=== PATIENT | male | born 1970 | race Caucasian/White ===

== ENCOUNTER 2020-07-28 14:36 | Emergency (ER) | payer OTHER, SELFPAY ==
[2020-07-28 14:51] VITALS: BP 161/83; PULSE 70; RESP 17; TEMP 37.1; O2SAT 98
[2020-07-28] MEDS: KETOROLAC 60 MG/2 ML VIAL 30 MG IM (17:08)
[2020-07-28] MEDS: CYCLOBENZAPRINE 10 MG TABLET PO (17:08)
[2020-07-28] MEDS: HYDROCODONE/ACET 5/325 TABLET 1 TAB PO (17:08)
[2020-07-28] MEDS: LIDOCAINE PATCH 1 EACH ADH..PATCH TOP (17:09)
--- NOTE | 2020-07-28 17:17 | ED.BACK ---
HPI - Back Pain/Injury <LELA Ramirez-BC - Last Filed: 07/28/20 17:43> General Chief Complaint: Back Pain/Injury Stated Complaint: bad back Time Seen by Provider: 07/28/20 16:52 Source: patient and family Mode of arrival: Ambulatory Limitations: no limitations History of Present Illness HPI Narrative: The patient is a 50-year-old male former smoker denies pertinent medical history presents with a chief complaint of right-sided lower back pain that started earlier today at approximately noon. He bent over to tie his shoes and felt sudden severe pain. He denies any numbness or tingling that is new. He denies any incontinence of bowel incontinence of bladder. He took 250 mg of naproxen at noon today. He denies any numbness of his groin. Denies any previous back injuries. States he feels like he is ?seized up. Related Data Previous Rx's Medication Instructions Recorded cyclobenzaprine 10 mg PO TID PRN #14 tab 07/28/20 hydrocodone-acetaminophen [[place]] 1 tab PO Q4-6H PRN #10 tab 07/28/20 ketorolac 10 mg PO TID PRN #15 tab 07/28/20 lidocaine 1 patch TOPICAL DAILY PRN #15 ea 07/28/20 Allergies Allergy/AdvReac Type Severity Reaction Status Date / Time No Known Drug Allergies Allergy Unverified 05/09/20 11:28 Review of Systems <LELA Ramirez-BC - Last Filed: 07/28/20 17:43> Review of Systems Narrative: GENERAL: Denies chills, fatigue, malaise, fever, sweats. HEENT: Denies sinus pain, ear pain, sore throat, difficulty swallowing, dizziness. RESPIRATORY: Denies dyspnea, cough, wheezing, hemoptysis, sputum. CARDIOVASCULAR: Denies chest pain, palpitations, orthopnea, edema, GASTROINTESTINAL: Denies nausea, vomiting, abdominal pain, diarrhea, constipation, melena. : Denies dysuria, frequency, incontinence, hematuria, urinary retention. MUSCULOSKELETAL: See HPI SKIN: Denies rash, skin lesions, or other NEUROLOGIC: Denies weakness, headache, numbness, change in speech, confusion, seizures, incoordination. PSYCHIATRIC: No concerning psychosocial issues. 12 point review of systems is negative except for those stated above Patient History <IJEOMA Ramirez - Last Filed: 07/28/20 17:43> Medical History (Updated 07/28/20 @ 17:20 by IJEOMA Ramirez) Eustachian tube dysfunction Social History Smoking Status: Former smoker Smoking Status: Former smoker alcohol intake frequency: a few times a month Substance Use Type: does not use Exam <IJEOMA Ramirez - Last Filed: 07/28/20 17:43> Narrative Exam Narrative: GENERAL: This is a well-nourished, well-developed patient, in no acute distress HEAD: Atraumatic. Normocephalic. No temporal or scalp tenderness. EYES: Pupils equal round and reactive. Extraocular motions intact. No scleral icterus. No injection or drainage. ENT: Nose without bleeding, purulent drainage or septal hematoma. Wearing a mask. Airway patent. NECK: Trachea midline. No JVD or lymphadenopathy. Supple, nontender, no meningeal signs. CARDIOVASCULAR: Regular rate and rhythm RESPIRATORY: Clear to auscultation. Breath sounds equal bilaterally. No wheezes, rales, or rhonchi. No cough. No increased respiratory effort. No accessory muscle use.. EXTREMITIES: No clubbing, cyanosis, or edema. No joint tenderness, effusion, or edema noted. BACK: No pain to palpation of midline CT or L-spine. No palpable deformity or crepitance. Pain to palpation of right paraspinal muscles, lumbar region NEURO: AOx3. Strength is equal upper lower extremities bilaterally. Patient declines rectal exam. SKIN: No rash or erythema on visible skin. No rash noted on right lower back. Initial Vital Signs Initial Vital Signs: Vital Signs Temperature 98.8 F 07/28/20 14:51 Pulse Rate 70 07/28/20 14:51 Respiratory Rate 17 07/28/20 14:51 Blood Pressure 161/83 H 07/28/20 14:51 Pulse Oximetry 98 07/28/20 14:51 <Jeanine Rodriguez DO - Last Filed: 07/28/20 20:10> Initial Vital Signs Initial Vital Signs: Vital Signs Temperature 98.8 F 07/28/20 14:51 Pulse Rate 70 07/28/20 14:51 Respiratory Rate 17 07/28/20 14:51 Blood Pressure 161/83 H 07/28/20 14:51 Pulse Oximetry 98 07/28/20 14:51 Scores <IJEOMA Ramirez - Last Filed: 07/28/20 17:43> GCS Gwen coma scale eye opening: Spontaneous Gwen coma scale verbal response: Orientated [place] coma scale motor response: Obey commands [place] coma scale total score: 15 Course <IJEOMA Ramirez - Last Filed: 07/28/20 17:43> Orders Ordered: Discontinued Medications Hydrocodone Bitart/Acetaminophen (Hydrocodone/Acet 5/325 Tablet) 1 tab PO NOW ONE Stop: 07/28/20 17:02 Last Admin: 07/28/20 17:08 Dose: 1 tab Documented by: PERICO Cyclobenzaprine HCl (Cyclobenzaprine 10 Mg Tablet) 10 mg PO NOW ONE Stop: 07/28/20 17:02 Last Admin: 07/28/20 17:08 Dose: 10 mg Documented by: PERICO Ketorolac Tromethamine (Ketorolac 60 Mg/2 Ml Vial) 30 mg IM NOW ONE Stop: 07/28/20 17:02 Last Admin: 07/28/20 17:08 Dose: 30 mg Documented by: PERICO Lidocaine (Lidocaine Patch 1 Each Adh..Patch) 1 each TOP NOW ONE Stop: 07/28/20 17:02 Last Admin: 07/28/20 17:09 Dose: 1 each Documented by: PERICO Vital Signs Vital signs: Vital Signs - 8 hr 07/28/20 14:51 07/28/20 17:47 Temperature 98.8 F Pulse Rate 70 60 Respiratory Rate 17 14 Blood Pressure 161/83 H 125/75 Pulse Oximetry 98 98 <Jeanine Rodriguez DO - Last Filed: 07/28/20 20:10> Orders Ordered: Discontinued Medications Hydrocodone Bitart/Acetaminophen (Hydrocodone/Acet 5/325 Tablet) 1 tab PO NOW ONE Stop: 07/28/20 17:02 Last Admin: 07/28/20 17:08 Dose: 1 tab Documented by: PERICO Cyclobenzaprine HCl (Cyclobenzaprine 10 Mg Tablet) 10 mg PO NOW ONE Stop: 07/28/20 17:02 Last Admin: 07/28/20 17:08 Dose: 10 mg Documented by: PERICO Ketorolac Tromethamine (Ketorolac 60 Mg/2 Ml Vial) 30 mg IM NOW ONE Stop: 07/28/20 17:02 Last Admin: 07/28/20 17:08 Dose: 30 mg Documented by: PERICO Lidocaine (Lidocaine Patch 1 Each Adh..Patch) 1 each TOP NOW ONE Stop: 07/28/20 17:02 Last Admin: 07/28/20 17:09 Dose: 1 each Documented by: PERICO Vital Signs Vital signs: Vital Signs - 8 hr 07/28/20 14:51 07/28/20 17:47 Temperature 98.8 F Pulse Rate 70 60 Respiratory Rate 17 14 Blood Pressure 161/83 H 125/75 Pulse Oximetry 98 98 MDM - Back Pain/Injury <LELA Ramirez- - Last Filed: 07/28/20 17:43> MDM Narrative Medical decision making narrative: The patient is a 48-year-old male who presents with a chief complaint of right-sided lower back pain. It appears to be musculoskeletal in nature, having occur when he was bending over. He does not have midline pain to palpation denies any red flag symptoms of incontinence of bowel, incontinence of bladder or saddle anesthesia but states understanding of these are strict return precautions. Patient declines rectal exam in the ER. The patient feels much improved after the above-stated therapies. I encouraged him to follow up with primary care provider in the next few days, he may benefit from physical therapy etcetera. Discussed at length that if he has any red flag symptoms he needs to come back to the emergency department. Patient have no questions or concerns upon discharge and state understanding return precautions as well as follow-up care. Discharge Plan Departure Patient Disposition: Home Clinical Impression: Muscle spasm Strain of lumbar region Qualifiers: Encounter type: initial encounter Qualified Code(s): S39.012A - Strain of muscle, fascia and tendon of lower back, initial encounter Instructions: DI for Low Back Pain, DI for Muscle Strain, DI for Back Spasm Activity Restrictions/Additional Instructions: Thank you for trusting us with your care today. I sent several prescriptions to [facility] in [place]. This includes ketorolac or Toradol, which is an NSAID, hydrocodone with Tylenol which is a stronger pain medicine, cyclobenzaprine or Flexeril which is a muscle relaxer as well as lidocaine patches You have been prescribed narcotic medications. While on these medications you cannot drive or operate heavy machinery. Additionally you cannot sign legal documents or perform any duties such as this. Many people get constipated on narcotic medications so it would be advisable to discuss stool softeners with the pharmacist when you black pickler your prescription. I have given you a prescription of Toradol. This is an NSAID. Do not combine it with other NSAIDs such as Aleve or ibuprofen. I suggest taking it with some food, as it can irritate your stomach. As discussed, the cyclobenzaprine can be sedating. Please follow-up with primary care provider in the next few days. Please come back to emergency department for any acute concerns such as those we discussed including incontinence of bowel, incontinence of bladder or numbness in your groin. Prescriptions: New lidocaine 5 % adhesive patch,medicated 1 patch topical DAILY PRN (Reason: pain) Qty: 15 RF: 0 cyclobenzaprine 10 mg tablet 10 mg PO TID PRN (Reason: muscle spasm) Qty: 14 RF: 0 ketorolac 10 mg tablet 10 mg PO TID PRN (Reason: pain) Qty: 15 RF: 0 hydrocodone-acetaminophen [[place]] 5-325 mg tablet 1 tab PO Q4-6H PRN (Reason: pain) Qty: 10 RF: 0 Referrals: [facility] [Provider Group] [facility] [Outside] <Jeanine Rodriguez DO - Last Filed: 07/28/20 20:10> [facility] Diana Attestation: I was immediately available in the department for consultation. Documentation has been reviewed. I agree with assessment and plan.
[2020-07-28 17:47] VITALS: BP 125/75; PULSE 60; RESP 14; O2SAT 98
== END 2020-07-28 17:49 | disposition home or self-care (01) ==
PROVIDERS: Emergency Provider Nurse Practitioner Family
DX: S39.012A Strain of muscle, fascia and tendon of lower back, initial encounter (principal); M62.830 Muscle spasm of back
CPT/HCPCS: 96372; 99281; 99283; J1885